=== PATIENT | male | born 1945 | race Caucasian/White ===

== ENCOUNTER → 2021-01-19 09:56 | Outpatient (CLI) | payer MEDICARE, OTHER, SELFPAY ==
[2021-01-19 20:18] LABS: Add Manual Diff / Slide Review NO; Basophils Absolute Auto 0 /uL (0-100); Basophils Percent Auto 0.5 % (0-2); Eosinophils Absolute Auto 100 /uL (0-450); Eosinophils Percent Auto 1.1 % (2-4); Hematocrit 46.2 % (41-53); Hemoglobin 15.6 g/dL (13.5-17.5); Lymphocytes Absolute Auto 2300 /uL (1100-4500); Lymphocytes Percent Auto 32.2 % (25-40); Mean Corpuscular HGB Conc 33.7 % (30-36); Mean Corpuscular Hemoglobin 31.4 PG (26-34); Mean Corpuscular Volume 93.1 fL (80-100); Monocytes Absolute Auto 500 /uL (0-900); Monocytes Percent Auto 7.3 % (3-14); Neutrophils Absolute Auto 4300 /uL (1500-7000); Neutrophils Percent Auto 58.9 % (50-75); Platelet Count 305 X10^3/uL (150-400); Red Blood Cell Count 4.96 X10^6/uL (4.5-5.9); White Blood Cell Count 7.3 X10^3/uL (4.5-11.0)
[2021-01-19 20:23] LABS: Alanine Aminotransferase 40 IU/L (<50); Albumin 4.6 g/dL (3.5-5.0); Albumin Globulin Ratio 1.5 (1.0-2.8); Alkaline Phosphatase 85 U/L (38-126); Aspartate Aminotransferase 37 IU/L (17-59); BUN Creatinine Ratio 24.7 (6-22); Bilirubin Total 0.7 mg/dL (0.2-1.3); Blood Urea Nitrogen 18 mg/dL (9-20); Calcium 10.5 mg/dL (8.4-10.2); Carbon Dioxide 27 mmol/L (22-32); Chloride 101 mmol/L (98-107); Cholesterol 141 mg/dL (140-199); Estimated Glomerular Filt Rate > 60.0 mL/min (>60); Glucose 174 mg/dL (80-110); HDL Cholesterol 52 mg/dL (40-60); HEMOLYSIS 21 (0-50); LDL Cholesterol Calculated 55 mg/dL (<100); Sodium 137 mmol/L (137-145); Total Protein 7.6 g/dL (6.3-8.2); Triglycerides 172 mg/dL (35-150)
[2021-01-19 20:54] LABS: Prostate Specific Antigen Scrn 1.98 ng/mL (0.1-4.0); TSH w/ Reflex to FT4 3.15 uIU/mL (0.47-4.68)
== END ==
PROVIDERS: PCP Physician Assistant Medical; Visit Provider Physician Assistant Medical
DX: E11.59 Type 2 diabetes mellitus with other circulatory complications (principal); Z12.5 Encounter for screening for malignant neoplasm of prostate; E11.21 Type 2 diabetes mellitus with diabetic nephropathy; E78.5 Hyperlipidemia, unspecified; E03.9 Hypothyroidism, unspecified; E55.9 Vitamin D deficiency, unspecified
CPT/HCPCS: 80053; 80061; 83036; 84443; 85025; G0103

== ENCOUNTER → 2021-02-08 12:07 | Outpatient (CLI) | payer MEDICARE, OTHER, SELFPAY ==
[2021-02-08 19:39] LABS: Hemoglobin A1C% w Est Avg Glu 7.8 % (4.0-6.0)
[2021-02-08 19:42] LABS: Albumin 4.4 g/dL (3.5-5.0); BUN Creatinine Ratio 21.5 (6-22); Blood Urea Nitrogen 17 mg/dL (9-20); Carbon Dioxide 31 mmol/L (22-32); Chloride 98 mmol/L (98-107); Estimated Glomerular Filt Rate > 60.0 mL/min (>60); Glucose 139 mg/dL (80-110); HEMOLYSIS < 15 (0-50); Phosphorous 3.3 mg/dL (2.3-3.7); Potassium 4.8 mmol/L (3.4-5.1); Sodium 136 mmol/L (137-145)
[2021-02-08 19:57] LABS: Appearance Urine UA CLEAR; Bilirubin Urine UA NEGATIVE (NEGATIVE); Color Urine UA YELLOW; Glucose Urine UA NEGATIVE (Negative); Ketones Urine UA NEGATIVE (NEGATIVE); Leukocyte Esterase Urine UA NEGATIVE (NEGATIVE); Nitrite Urine UA NEGATIVE (Negative); Occult Blood Urine UA NEGATIVE (Negative); Protein Urine UA 2+ (Negative); Specific Gravity Urine UA 1.015 (1.000-1.035); Urobilinogen Urine UA 0.2 E.U./dL (0.2); pH Urine UA 6.5 (4.5-8.0)
[2021-02-08 19:59] LABS: Creatinine Urine Random 91.8 mg/dL
[2021-02-08 20:17] LABS: Bacteria Urine None Seen; Culture Indicated Urine Cult Not Indicated; RBC Urine 0-1/HPF (0-5/HPF); WBC Urine 0-1/HPF (0-5/HPF)
[2021-02-08 20:23] LABS: Microalbumi Creatinin Ratio Ur 351.8 ug/mg CR (<30); Microalbumin Urine Random 32.3 mg/dL (0-1.6)
== END ==
PROVIDERS: PCP Physician Assistant Medical; Referring Provider Internal Medicine Endocrinology, Diabetes & Metabolism; Visit Provider Internal Medicine Endocrinology, Diabetes & Metabolism
DX: E11.21 Type 2 diabetes mellitus with diabetic nephropathy (principal)
CPT/HCPCS: 80069; 81001; 82043; 82570; 83036

== ENCOUNTER → 2021-04-25 14:44 | Outpatient (CLI) | payer MEDICARE, OTHER, SELFPAY ==
--- NOTE | 2021-04-25 15:51 | DI.ECHO.S_ITS ---
:Reason For Study: Murmur : :Ordering Physician: : :NELLY^SAULO^L Performed By: Hamilton Julien : :Referring: SAULO VILLEGAS : + + Interpretation Summary The left ventricle is normal in size. The ejection fraction is estimated to be 60-65%. Left ventricular wall motion is normal. The right ventricular systolic function is normal. The right ventricular systolic pressure is estimated to be at least 35 mmHg based on an estimated right atrial pressure of 3 mm Hg. Aortic sclerosis without significant stenosis. Procedure: A two-dimensional transthoracic echocardiogram with color flow and Doppler was performed. Most of the acoustic windows were suboptimal, but the best imaging was obtained from the parasternal window. The suprasternal notch views were difficult to obtain and are suboptimal in quality. The subcostal views were difficult to obtain and are suboptimal in quality. There is no prior echocardiogram noted for this patient. The patient was in atrial fibrillation with heart rates between 59 - 71 bpm during the exam. Left Ventricle: The left ventricle is normal in size. RWT 0.68 [employer]odeling. The ejection fraction is estimated to be 60-65%. Left ventricular wall motion is normal. Diastolic function could not be accurately assessed due to atrial fibrillation. Right Ventricle: Borderline right ventricular enlargement. The right ventricular systolic function is normal. Atria: The left atrial size is normal. Borderline right atrial enlargement. There is no Doppler evidence for an interatrial shunt. Mitral Valve: The mitral valve is normal. There is trace mitral regurgitation. Aortic Valve: The aortic valve is trileaflet. The aortic valve opens well. The aortic valve is slightly calcified. There is trace aortic regurgitation. Tricuspid Valve: The tricuspid valve is normal. There is mild tricuspid regurgitation. The right ventricular systolic pressure is estimated to be at least 35 mmHg based on an estimated right atrial pressure of 3 mm Hg. Pulmonic Valve: The pulmonic valve is normal in structure and function. Great Vessels: The aortic root is normal size. The ascending aorta is normal in size. The aortic arch could not be visualized. The IVC is of normal diameter and collapses greater than 50% with a sniff. This suggests a low right atrial pressure of 3 mm Hg. Pericardium/ Pleura There is no pericardial effusion. There is no pleural effusion. MMode/2D Measurements & Calculations LVIDd: 4.4 cm LVOT diam: 2.1 cm LVIDs: 3.2 cm Ao root diam: 3.1 cm FS: 27.3 % asc Aorta Diam: 3.4 cm IVSd: 1.0 cm LVPWd: 1.5 cm LV venegas. diameter/BSA (cm/m^2): 2.0 LV sys. diameter/BSA (cm/m^2): 1.5 LA A2 area: 15.1 cm2 RA long axis: 4.9 cm LA A4 area: 20.1 cm2 RA area: 14.9 cm2 LA length (vol): 5.7 cm RA vol: 38.8 ml LA vol: 44.9 ml RA : 17.9 ml/m2 LA vol index: 20.7 ml/m2 TAPSE: 2.7 cm Doppler Measurements & Calculations Ao V2 max: 195.5 cm/sec LVOT Max Eloy: 120.9 cm/sec Ao V2 mean: 140.0 cm/sec LV V1 max P.9 mmHg Ao max P.4 mmHg LV V1 VTI: 25.8 cm Ao mean P.6 mmHg MARGE(I,D): 2.2 cm2 Ao V2 VTI: 41.6 cm MARGE(V,D): 2.1 cm2 sev ratio: 0.62 MARGE indexed to BSA (cm^2/m^2): 0.99 MV E max eloy: 148.1 cm/sec TR max eloy: 281.0 cm/sec Med Peak E' Eloy: 15.3 cm/sec TR max P.6 mmHg E/E' med: 9.7 PA V2 max: 123.0 cm/sec Lat Peak E' Eloy: 18.7 cm/sec PA V2 mean: 85.4 cm/sec E/E' lat: 7.9 PA mean P.0 mmHg E/e' average: 8.8 PA pr(Accel): 44.4 mmHg MV dec time: 0.14 sec SV(LVOT): 89.4 ml Reading Physician:PM
== END ==
PROVIDERS: PCP Family Medicine; Referring Provider Family Medicine; Visit Provider Family Medicine
DX: R01.1 Cardiac murmur, unspecified (principal); I08.2 Rheumatic disorders of both aortic and tricuspid valves
CPT/HCPCS: 93306

== ENCOUNTER → 2023-02-21 12:05 | Outpatient (CLI) | payer MEDICARE, OTHER, SELFPAY ==
--- NOTE | 2023-02-21 | DI.US.S_ITS ---
PROCEDURE: US RENAL COMPLETE INDICATIONS: CHRONIC KIDNEY DISEASE TECHNIQUE: Real-time scanning was performed of the kidneys and bladder, with image documentation. COMPARISON: None. FINDINGS: Kidneys: Kidneys are normal in size. Right kidney measures 12.8 cm long; left kidney measures 11.2 cm long. Right renal cortical thickness is 1.7 cm; left renal cortical thickness is 1.9 cm. Renal cortical echotexture is normal. No hydronephrosis or nephrolithiasis. No suspicious solid mass lesions. Left renal simple cyst measuring 7 millimeters. Bladder: Pre-void bladder volume is 199 mL. Post-void residual is 45 mL. Pre-void images demonstrate no intraluminal masses or stones. On pre-void images, bilateral ureteral jets are noted with color Doppler interrogation. (Of note, ureteral jets may not be detectable in up to 25% of cases due to insufficient differences in specific gravity between ureteral and bladder urine). Miscellaneous: No free pelvic fluid. IMPRESSION: 1. Normal appearance of the kidneys without hydronephrosis. 2. Post void residual volume of 45 cc. Dictated by: Miky Chau M.D. on 02/21/2023 at 13:10 Approved by: Miky Chau M.D. on 02/21/2023 at 13:11
== END ==
PROVIDERS: PCP Family Medicine; Referring Provider Student in an Organized Health Care Education/Training Program; Visit Provider Student in an Organized Health Care Education/Training Program
DX: N18.2 Chronic kidney disease, stage 2 (mild) (principal)
CPT/HCPCS: 76770

== ENCOUNTER → 2024-09-03 15:04 | Outpatient (CLI) | payer MEDICARE, OTHER, SELFPAY ==
--- NOTE | 2024-09-03 15:08 | DI.MRI.S_ITS ---
PROCEDURE: MR PELVIC PROSTATE PROTOCOL INDICATIONS: ELEVATED PSA TECHNIQUE: Coronal HASTE, axial T1 FSE with fat saturation, 3-plane nonbreath-hold T2 FSE. After the administration of contrast, dynamic axial, delayed axial and coronal VIBE or 2-D FLASH with fat saturation through the pelvis. Diffusion weighted imaging and ADC was performed. COMPARISON: None. FINDINGS: Image quality: Diffusion weighted and dynamic contrast enhanced images are diagnostic. Prostate: Gland size is 5.0 x 3.6 x 4.5 cm; ellipsoid gland volume is 42 mL. Lesion 1: Location: Right medial peripheral zone, mid gland, on axial series 4, image 15 and coronal series 5, image 19. Size: 0.6 x 0.6 cm. T2W signal: Hypointense. DWI signal: Isointense. ADC signal: Markedly hypointense. Enhancement: Yes. Extracapsular extension: No. No neurovascular involvement. PI-RADS score: 4 Genitourinary system: Bladder wall is trabeculated. Distal ureters are non distended. Bowel and peritoneum: No pathologic free pelvic fluid. Inferior colon and small bowel loops are normal in caliber. Nodes and vessels: No pelvic or inguinal adenopathy by size criteria. Iliac vessels are normal in caliber. Soft tissues: No inguinal hernias. Bones: Marrow demonstrates normal overall signal, without lesions to suggest metastases. IMPRESSION: PI-RADS 4 lesion in the right medial peripheral zone of the prostate midgland. No pelvic lymphadenopathy by size criteria. No aggressive osseous abnormality. Dictated by: Sushant Hernandez M.D. on 09/04/2024 at 16:48 Approved by: Sushant Hernandez M.D. on 09/04/2024 at 16:52
== END ==
PROVIDERS: PCP Family Medicine; Referring Provider Family Medicine; Visit Provider Family Medicine
DX: N42.9 Disorder of prostate, unspecified (principal); R97.20 Elevated prostate specific antigen [PSA]
CPT/HCPCS: 72197; A9579